=== PATIENT | male | born 1985 | race American Indian/Alaskan Native ===

== ENCOUNTER → 2025-05-03 | Outpatient (CLI) | payer OTHER, SELFPAY ==
--- NOTE | 2025-05-03 16:00 | XR_ITS ---
Examination: CT abdomen and pelvis without contrast. Coronal 3-D reconstructions. Sagittal 2-D reconstructions. Date and time of exam:May 03, 2025, 1613 hours Comparison June 12, 2021 INDICATIONS: Right lower abdominal pain beginning one month ago CTDI: vol (mGy): 8.93 DLP: (mGycm): 556 Technique: Axial images of the abdomen have been obtained, 3 mm slice thickness Intravenous contrast material has not been administered. Low dose protocols were performed. One or more of the following dose reduction techniques were used; automated exposure control, adjustment of the mA and/or KV according to patient size, use of iterative reconstruction technique. Findings: Diffuse fatty infiltration throughout the liver Absent gallbladder Spleen not enlarged. No pancreatic or adrenal mass. No renal or ureteral calculi, no hydronephrosis Normal appendix No bowel obstruction No diverticulitis Normal seminal vesicles No prostatomegaly Suspicious thickening of the lower rectal wall, axial image 202 No prostatomegaly Urinary bladder is intact Chronic compressions L2 T11 IMPRESSION: Normal appendix Suspicious thickening of the lower rectal wall, recommend direct inspection, colonoscopy to exclude malignant neoplasm of the rectosigmoid
== END | disposition home or self-care (01) ==
LOC: CCTX 15:42
PROVIDERS: Referring Provider Physician Assistant; Visit Provider Physician Assistant
DX: K62.89 Other specified diseases of anus and rectum (principal); R10.31 Right lower quadrant pain
CPT/HCPCS: 74176